=== PATIENT | female | born 1985 | race Caucasian/White ===

== ENCOUNTER 2018-10-09 11:07 | Outpatient (CLI) | payer OTHER ==
[~2018-10-09] VITALS: Ht 157.5 cm; Wt 60.9 kg
[2018-10-09 11:36] VITALS: BP 101/61
[2018-10-09] MEDS ORDERED: PREN1TAB60 PO (11:50)
[2018-10-09] MEDS ORDERED: IRON1TAB86 PO (11:52)
[2018-10-09] MEDS ORDERED: DOCU-131 PO (11:52)
== END 2018-10-09 12:55 | disposition home or self-care (01) ==
LOC: LDOP 11:07
PROVIDERS: ATTEND Obstetrics & Gynecology
DX: O36.5930 Maternal care for other known or suspected poor fetal growth, third trimester, not applicable or unspecified (principal); Z3A.34 34 weeks gestation of pregnancy
CPT/HCPCS: 59025; 76819; 99201; G0463

== ENCOUNTER 2018-10-17 10:58 | Outpatient (CLI) | payer OTHER ==
[~2018-10-17] VITALS: Ht 157.5 cm; Wt 60.9 kg
[~2018-10-17 10:58] MED LIST: DOCU-131 PO; IRON1TAB86 PO; PREN1TAB60 PO
[2018-10-17 11:03] VITALS: BP 105/68
== END 2018-10-17 12:10 | disposition home or self-care (01) ==
LOC: LDOP 10:58
PROVIDERS: ATTEND Obstetrics & Gynecology
DX: O36.5930 Maternal care for other known or suspected poor fetal growth, third trimester, not applicable or unspecified (principal); Z3A.35 35 weeks gestation of pregnancy
CPT/HCPCS: 59025; 99211; G0463

== ENCOUNTER 2020-08-06 15:21 | Observation (INO) | payer OTHER ==
[~2020-08-06 15:21] MED LIST changes: +IBUP-1222 PO
[2020-08-06 16:12] VITALS: BP 109/65
[2020-08-06 17:04] LABS: MICROSCOPIC NOT IND
[2020-08-06 18:55] LABS: ACETONE, URINE Large (80mg/dL) (Negative)
[2020-08-06] MEDS ORDERED: LACTATED RINGERS 1,000 ML IVBOLUS ONE (20:30)
[2020-08-06 21:34] LABS: MICROSCOPIC NOT IND
== END 2020-08-06 22:18 | disposition home or self-care (01) ==
LOC: LDOP 15:21 → LDIP 17:00
PROVIDERS: ADMIT Obstetrics & Gynecology; ATTEND Obstetrics & Gynecology
DX: O99.283 Endocrine, nutritional and metabolic diseases complicating pregnancy, third trimester (principal); E86.0 Dehydration; O24.410 Gestational diabetes mellitus in pregnancy, diet controlled; Z3A.32 32 weeks gestation of pregnancy
CPT/HCPCS: 59025; 81003; 82009; 82962; 96360; 96361; G0378; J7120

== ENCOUNTER 2020-09-11 09:11 | Outpatient (CLI) | payer OTHER ==
[~2020-09-11] VITALS: Ht 157.5 cm; Wt 74.5 kg
[2020-09-11 09:15] VITALS: BP 113/73
== END 2020-09-11 10:10 | disposition home or self-care (01) ==
LOC: LDOP 09:11
PROVIDERS: ATTEND Obstetrics & Gynecology
DX: O24.419 Gestational diabetes mellitus in pregnancy, unspecified control (principal); Z3A.37 37 weeks gestation of pregnancy
CPT/HCPCS: 59025